=== PATIENT | male | born 1950 | race Caucasian/White ===

== ENCOUNTER 2022-11-27 14:01 | Emergency (ER) | payer MEDICARE ==
[2022-11-27] MEDS ORDERED: Amoxicillin/Potassium Clav 875 MG TAB ONE (17:16)
== END 2022-11-27 17:10 | disposition home or self-care (01) ==
LOC: CSHERS 14:01
DX: J01.90 Acute sinusitis, unspecified (principal)
CPT/HCPCS: 87081; 87430; 99283